=== PATIENT | female | born 1945 | race Caucasian/White ===

== ENCOUNTER 2022-01-19 14:36 | Emergency (ER) | payer BC, MEDICARE ==
[2022-01-19] MEDS ORDERED: Hydrochlorothiazide 25 MG Tab PO ONE (15:57)
[2022-01-19 16:27] LABS: CARBON DIOXIDE,CO2 32.9 mmol/L (21.0-32.0); POTASSIUM,K 3.8 mmol/L (3.5-5.1)
== END 2022-01-19 17:13 | disposition home or self-care (01) ==
LOC: MW.ED 14:36
DX: I11.9 Hypertensive heart disease without heart failure (principal); Z79.899 Other long term (current) drug therapy
CPT/HCPCS: 36415; 80053; 84484; 93005; 99283; A9270